=== PATIENT | female | born 1970 | race Caucasian/White ===

== ENCOUNTER → 2024-10-23 | Outpatient (CLI) | payer BC, SELFPAY ==
[2024-10-23 17:38] LABS: Misc Send Out* See Sep Rpt
[2024-10-23 17:53] LABS: Basophils # (Auto) 0.1 Thou/mm3 (0.0-0.2); Basophils % (Auto) 1 % (0-2.5); Eosinophils # (Auto) 0.3 Thou/mm3 (0.0-0.5); Eosinophils % (Auto) 3 % (0-10); Hemoglobin 12.3 g/dL (12.0-16.0); Immature Granulocytes % (Auto) 0 % (0-0); Immature Granulocytes Auto 0.02 Thou/mm3 (0.00-0.00); Lymphocytes # (Auto) 3.4 Thou/mm3 (1.0-4.8); Lymphocytes % (Auto) 40 % (10-50); Mean Corpuscular HGB Conc 32.4 g/dl (31.0-37.0); Mean Corpuscular Hemoglobin 27.5 pg (25.0-35.0); Mean Corpuscular Volume 85 fL (80-100); Monocytes # (Auto) 0.5 Thou/mm3 (0.0-0.8); Monocytes % (Auto) 5 % (0-12); Neutrophils # (Auto) 4.4 Thou/mm3 (1.8-7.7); Neutrophils % (Auto) 51 % (37-80); Nucleated Red Blood Cell % 0 /100 WBC (0); Platelet Count 408 Thou/mm3 (140-440); RDW Standard Deviation 44.1 fL (36.4-46.3); Red Blood Count 4.47 Miln/mm3 (4.00-5.20); White Blood Count 8.6 Thou/mm3 (3.6-11.0)
[2024-10-23 18:14] LABS: Sed Rate (ESR) 41 mm/hr (0-30)
[2024-10-23 18:28] LABS: Vitamin B12 628 pg/mL (211-911)
[2024-10-23 18:29] LABS: Alanine Aminotransferase 27 U/L (10-49); Albumin, Serum 4.7 gm/dL (3.5-5.0); Albumin/Globulin Ratio 2.1 (1.2-2.2); Alkaline Phosphatase 140 U/L (46-116); Anion Gap 8 (7-16); Aspartate Amino Transferase 24 U/L (0-34); BUN/Creatinine Ratio 17 Ratio (12-20); Bilirubin,Total 0.3 mg/dL (0.3-1.2); Blood Urea Nitrogen 12 mg/dL (9-23); C-Reactive Protein 0.5 mg/dL (0.0-0.9); Calcium 9.2 mg/dL (8.3-10.6); Calcium (Corrected) 9.2 mg/dL (8.5-10.1); Carbon Dioxide 31.9 mMol/L (20.0-31.0); Chloride 96 mMol/L (98-107); Creatinine (Component) 0.7 mg/dL (0.6-1.3); Free T3 4.1 pg/mL (2.3-4.2); Free T4 (Free Thyroxine) 1.54 ng/dL (0.89-1.76); Globulin 2.2 gm/dL (2.3-3.5); Glucose 113 mg/dL (74-106); Osmolality,Calculated 272 (275-295); Potassium 3.3 mMol/L (3.4-5.1); Sodium 136 mMol/L (136-145); Thyroid Stimulating Hormone 2.78 uIU/mL (0.55-4.78); Total Protein 6.9 gm/dL (5.7-8.2); eGFR > 60 See Note
[2024-10-31 14:21] LABS: Vitamin B1 (Thiamine)* <6 nmol/L (8-30)
[2024-11-01 07:05] LABS: Cardiolipin Ab (IgA) <2.0 APL-U/mL; Cardiolipin Ab (IgG) <2.0 GPL-U/mL; EBV VCA Ab (IgM) <36.00 U/mL; Sjogren's antibody (SS-A) <1.0 NEG AI (<1.0 NEGATIVE); Sm Antibody <1.0 NEG AI (<1.0 NEGATIVE)
[2024-11-05 06:47] LABS: B2-Glycoprotein I Ab IgA <2.0 U/mL; B2-Glycoprotein I Ab IgG <2.0 U/mL; B2-Glycoprotein I Ab IgM <2.0 U/mL; Cardiolipin Ab (IgM) <2.0 MPL-U/mL; Complement Component C3* 203 mg/dL (83-193); Complement Component C4c* 24 mg/dL (15-57); DNA (ds) Antibody* 1 IU/mL; EBV Ab Interpretation PAST; Scl-70 Antibody* <1.0 NEG AI (<1.0 NEGATIVE); Sjogren's Antibody (SS-B) <1.0 NEG AI (<1.0 NEGATIVE); Sm/RNP Antibody <1.0 NEG AI (<1.0 NEGATIVE); Thyroid Peroxidase Antibodies* 1 IU/mL (<9)
== END | disposition home or self-care (01) ==
LOC: COPL 17:03
PROVIDERS: PCP Family Medicine; Referring Provider Internal Medicine; Visit Provider Internal Medicine Endocrinology, Diabetes & Metabolism
DX: E89.0 Postprocedural hypothyroidism (principal); E03.9 Hypothyroidism, unspecified; F51.04 Psychophysiologic insomnia; I10 Essential (primary) hypertension; K21.9 Gastro-esophageal reflux disease without esophagitis; M79.18 Myalgia, other site; R53.83 Other fatigue; R76.8 Other specified abnormal immunological findings in serum
CPT/HCPCS: 36415; 80053; 82607; 84425; 84439; 84443; 84481; 85025; 85652; 86140; 86146; 86147; 86160; 86225; 86235; 86376; 86664; 86665; 86880

== ENCOUNTER → 2024-11-27 | Outpatient (CLI) | payer BC, SELFPAY ==
[2024-11-27 14:40] LABS: Sed Rate (ESR) 25 mm/hr (0-30)
[2024-11-27 14:45] LABS: Alanine Aminotransferase 17 U/L (10-49); Albumin, Serum 4.5 gm/dL (3.5-5.0); Albumin/Globulin Ratio 1.8 (1.2-2.2); Alkaline Phosphatase 95 U/L (46-116); Anion Gap 11 (7-16); Aspartate Amino Transferase 18 U/L (0-34); BUN/Creatinine Ratio 19 Ratio (12-20); Bilirubin,Total 0.2 mg/dL (0.3-1.2); Blood Urea Nitrogen 15 mg/dL (9-23); C-Reactive Protein 0.7 mg/dL (0.0-0.9); Calcium 9.3 mg/dL (8.3-10.6); Calcium (Corrected) 9.3 mg/dL (8.5-10.1); Carbon Dioxide 26.8 mMol/L (20.0-31.0); Chloride 100 mMol/L (98-107); Creatinine (Component) 0.8 mg/dL (0.6-1.3); Globulin 2.5 gm/dL (2.3-3.5); Glucose 128 mg/dL (74-106); Osmolality,Calculated 278 (275-295); Sodium 138 mMol/L (136-145); eGFR > 60 See Note
[2024-11-27 14:58] LABS: Potassium 2.4 mMol/L (3.4-5.1)
[2024-11-27 21:21] LABS: Parathyroid Hormone Intact 58.1 pg/ml (18.5-88.0)
[2024-12-03 06:59] LABS: Mitochondrial Ab NEGATIVE (NEGATIVE); Thyroid Peroxidase Antibodies* <1 IU/mL (<9)
[2024-12-03 07:00] LABS: Gamma Glutamyl Transpeptidase* 10 U/L (3-70); LKM-1 Antibody (IgG)* <20.0 U
== END | disposition home or self-care (01) ==
PROVIDERS: PCP Family Medicine
DX: E03.9 Hypothyroidism, unspecified (principal); F51.04 Psychophysiologic insomnia; I10 Essential (primary) hypertension; K21.9 Gastro-esophageal reflux disease without esophagitis; M51.372 Other intervertebral disc degeneration, lumbosacral region with discogenic back pain and lower extremity pain; M79.18 Myalgia, other site; R53.83 Other fatigue; R76.8 Other specified abnormal immunological findings in serum
CPT/HCPCS: 36415; 80053; 82977; 83970; 85652; 86140; 86255; 86376

== ENCOUNTER → 2025-01-09 | Outpatient (CLI) | payer BC, SELFPAY ==
[2025-01-09 18:09] LABS: Basophils # (Auto) 0.1 Thou/mm3 (0.0-0.2); Basophils % (Auto) 1 % (0-2.5); Eosinophils # (Auto) 0.4 Thou/mm3 (0.0-0.5); Eosinophils % (Auto) 5 % (0-10); Hematocrit 32.9 % (36.0-46.0); Hemoglobin 10.5 g/dL (12.0-16.0); Immature Granulocytes % (Auto) 0 % (0-0); Immature Granulocytes Auto 0.01 Thou/mm3 (0.00-0.00); Lymphocytes # (Auto) 3.1 Thou/mm3 (1.0-4.8); Lymphocytes % (Auto) 39 % (10-50); Mean Corpuscular HGB Conc 31.9 g/dl (31.0-37.0); Mean Corpuscular Hemoglobin 25.1 pg (25.0-35.0); Mean Corpuscular Volume 79 fL (80-100); Monocytes # (Auto) 0.5 Thou/mm3 (0.0-0.8); Monocytes % (Auto) 6 % (0-12); Neutrophils # (Auto) 3.9 Thou/mm3 (1.8-7.7); Neutrophils % (Auto) 49 % (37-80); Nucleated Red Blood Cell % 0 /100 WBC (0); Platelet Count 420 Thou/mm3 (140-440); RDW Standard Deviation 44.7 fL (36.4-46.3); Red Blood Count 4.18 Miln/mm3 (4.00-5.20); White Blood Count 7.9 Thou/mm3 (3.6-11.0)
[2025-01-09 18:29] LABS: Alanine Aminotransferase 35 U/L (10-49); Albumin, Serum 4.1 gm/dL (3.5-5.0); Albumin/Globulin Ratio 1.7 (1.2-2.2); Alkaline Phosphatase 124 U/L (46-116); Anion Gap 11 (7-16); Aspartate Amino Transferase 33 U/L (0-34); BUN/Creatinine Ratio 14 Ratio (12-20); Bilirubin,Total 0.2 mg/dL (0.3-1.2); Blood Urea Nitrogen 11 mg/dL (9-23); Calcium 9.2 mg/dL (8.3-10.6); Calcium (Corrected) 9.2 mg/dL (8.5-10.1); Carbon Dioxide 29.2 mMol/L (20.0-31.0); Chloride 99 mMol/L (98-107); Creatinine (Component) 0.8 mg/dL (0.6-1.3); Free T3 3.3 pg/mL (2.3-4.2); Free T4 (Free Thyroxine) 1.37 ng/dL (0.89-1.76); Globulin 2.4 gm/dL (2.3-3.5); Glucose 91 mg/dL (74-106); Osmolality,Calculated 276 (275-295); Potassium 3.1 mMol/L (3.4-5.1); Sodium 139 mMol/L (136-145); Thyroid Stimulating Hormone 2.65 uIU/mL (0.55-4.78); Total Protein 6.5 gm/dL (5.7-8.2); eGFR > 60 See Note
== END | disposition home or self-care (01) ==
PROVIDERS: PCP Nurse Practitioner Adult Health; Referring Provider Physician Assistant
DX: K21.9 Gastro-esophageal reflux disease without esophagitis (principal); R53.83 Other fatigue; E66.9 Obesity, unspecified; E89.0 Postprocedural hypothyroidism; I10 Essential (primary) hypertension; M79.18 Myalgia, other site
CPT/HCPCS: 36415; 80053; 84439; 84443; 84481; 85025

== ENCOUNTER → 2025-01-21 | Outpatient (CLI) | payer BC, SELFPAY ==
[2025-01-28 06:56] LABS: Helicobacter pylori Ag, Stool* NOT DETECTED (NOT DETECTED)
== END | disposition home or self-care (01) ==
LOC: SLDO 14:08
PROVIDERS: Referring Provider Physician Assistant; Visit Provider Physician Assistant
DX: K21.9 Gastro-esophageal reflux disease without esophagitis (principal)
CPT/HCPCS: 87338

== ENCOUNTER → 2025-02-13 | Outpatient (CLI) | payer BC, SELFPAY ==
[2025-02-13 16:31] LABS: Basophils # (Auto) 0.1 Thou/mm3 (0.0-0.2); Basophils % (Auto) 1 % (0-2.5); Eosinophils # (Auto) 0.4 Thou/mm3 (0.0-0.5); Eosinophils % (Auto) 5 % (0-10); Hematocrit 33.8 % (36.0-46.0); Hemoglobin 10.8 g/dL (12.0-16.0); Immature Granulocytes % (Auto) 0 % (0-0); Immature Granulocytes Auto 0.01 Thou/mm3 (0.00-0.00); Lymphocytes # (Auto) 2.7 Thou/mm3 (1.0-4.8); Lymphocytes % (Auto) 37 % (10-50); Mean Corpuscular Hemoglobin 24.8 pg (25.0-35.0); Mean Corpuscular Volume 78 fL (80-100); Monocytes # (Auto) 0.5 Thou/mm3 (0.0-0.8); Monocytes % (Auto) 7 % (0-12); Neutrophils # (Auto) 3.6 Thou/mm3 (1.8-7.7); Neutrophils % (Auto) 50 % (37-80); Nucleated Red Blood Cell % 0 /100 WBC (0); Platelet Count 418 Thou/mm3 (140-440); Red Blood Count 4.35 Miln/mm3 (4.00-5.20); White Blood Count 7.3 Thou/mm3 (3.6-11.0)
== END | disposition home or self-care (01) ==
LOC: COPL 15:02
PROVIDERS: PCP Family Medicine; Referring Provider Family Medicine; Visit Provider Family Medicine
DX: D50.0 Iron deficiency anemia secondary to blood loss (chronic) (principal)
CPT/HCPCS: 36415; 85025

== ENCOUNTER → 2025-04-19 | Outpatient (CLI) | payer BC, SELFPAY ==
--- NOTE | 2025-04-19 | XR_ITS ---
Examination: Knee bilateral, 6 views Technique: Knee AP, lateral, oblique each knee total 6 views Date and time of exam: April 19, 2025 1141 hours INDICATIONS: Knee pain beginning 6 months ago. FINDINGS: Moderate osteopenia Bilateral minimal narrowing medial joint spaces No fracture or dislocation Bilateral minimal osteoarthritis patellofemoral joints IMPRESSION: Bilateral minimal osteoarthritis
[2025-04-19 12:43] LABS: Basophils % (Auto) 0 % (0-2.5); Eosinophils % (Auto) 0 % (0-10); Hematocrit 34.6 % (36.0-46.0); Hemoglobin 11.1 g/dL (12.0-16.0); Immature Granulocytes % (Auto) 1 % (0-0); Immature Granulocytes Auto 0.06 Thou/mm3 (0.00-0.00); Lymphocytes # (Auto) 1.6 Thou/mm3 (1.0-4.8); Lymphocytes % (Auto) 13 % (10-50); Mean Corpuscular HGB Conc 32.1 g/dl (31.0-37.0); Mean Corpuscular Hemoglobin 25.3 pg (25.0-35.0); Mean Corpuscular Volume 79 fL (80-100); Monocytes # (Auto) 0.3 Thou/mm3 (0.0-0.8); Monocytes % (Auto) 2 % (0-12); Neutrophils # (Auto) 10.4 Thou/mm3 (1.8-7.7); Neutrophils % (Auto) 84 % (37-80); Nucleated Red Blood Cell % 0 /100 WBC (0); Platelet Count 441 Thou/mm3 (140-440); RDW Standard Deviation 48.1 fL (36.4-46.3); Red Blood Count 4.39 Miln/mm3 (4.00-5.20); White Blood Count 12.4 Thou/mm3 (3.6-11.0)
[2025-04-19 13:00] LABS: Ferritin 2 ng/mL (7.3-270.7); Iron 16 mcg/dL (50-170); Vitamin B12 578 pg/mL (211-911)
[2025-04-19 13:02] LABS: Alanine Aminotransferase 24 U/L (10-49); Albumin, Serum 4.6 gm/dL (3.5-5.0); Albumin/Globulin Ratio 2.2 (1.2-2.2); Alkaline Phosphatase 71 U/L (46-116); Anion Gap 10 (7-16); Aspartate Amino Transferase 19 U/L (0-34); BUN/Creatinine Ratio 19 Ratio (12-20); Bilirubin,Total 0.2 mg/dL (0.3-1.2); Blood Urea Nitrogen 13 mg/dL (9-23); Calcium 9.1 mg/dL (8.3-10.6); Calcium (Corrected) 9.1 mg/dL (8.5-10.1); Carbon Dioxide 24.4 mMol/L (20.0-31.0); Chloride 111 mMol/L (98-107); Creatinine (Component) 0.7 mg/dL (0.6-1.3); Free T4 (Free Thyroxine) 1.39 ng/dL (0.89-1.76); Globulin 2.1 gm/dL (2.3-3.5); Glucose 140 mg/dL (74-106); Osmolality,Calculated 290 (275-295); Phosphorous 3.2 mg/dL (2.4-5.1); Potassium 3.4 mMol/L (3.4-5.1); Sodium 145 mMol/L (136-145); Thyroid Stimulating Hormone 0.36 uIU/mL (0.55-4.78); Total Protein 6.7 gm/dL (5.7-8.2); eGFR > 60 See Note
== END | disposition home or self-care (01) ==
LOC: CDIM 11:22 → COPL 12:07
PROVIDERS: PCP Family Medicine; Referring Provider Internal Medicine Endocrinology, Diabetes & Metabolism; Visit Provider Family Medicine
DX: E03.9 Hypothyroidism, unspecified (principal); M25.561 Pain in right knee; M25.562 Pain in left knee; R53.83 Other fatigue; Z13.1 Encounter for screening for diabetes mellitus
CPT/HCPCS: 36415; 73562; 80053; 82607; 82728; 83540; 84100; 84439; 84443; 85025

== ENCOUNTER → 2025-06-13 | Outpatient (CLI) | payer BC, SELFPAY ==
--- NOTE | 2025-06-13 13:45 | XR_ITS ---
Exam: MRI knee without contrast, right Date and time of exam: June 13, 2025 1517 hours INDICATIONS: Right knee pain 3 months Technique: Multiple axial, coronal, and sagittal sections on the knee have been obtained. T2-Weighted sagittal, fat-suppressed images, TR 3,500, TE 62, T2 weighted coronal fat-saturated images, TR 3,500, TE 62 Proton density sagittal sections, TR 1800, TE 31. T-1 weighted coronal images, TR 524, TE 13.0 Findings: Medial meniscus anterior horn intact. Medial meniscus, body intact. Posterior horn medial meniscus intact. Lateral meniscus anterior horn is intact Lateral meniscus, body truncation inner margin Posterior horn lateral meniscus is intact Anterior cruciate ligament appears intact. Posterior cruciate ligament appears intact. Knee effusion is moderate. Quadriceps and patellar tendons appear intact. There is no evidence of tendinosis. Inflammatory change or fracture of Hoffa's fat pad is not seen. Medial patellar facet demonstrates moderate thinning. Lateral patellar facet cartilage demonstrates moderate thinning. Trochlear cartilage demonstrates moderate thinning. Marrow signal increased about the lateral joint space. Medial collateral ligament appears intact. No meniscocapsular separation is seen. Illiotibial band and fibular collateral ligament are intact. Biceps femoris tendons appear intact. Medial femoral condylar articular cartilage demonstrates moderate thinning. Lateral femoral condylar articular cartilage demonstratesmoderate thinning. Tibial plateau cartilage demonstrates moderate thinning. Impression: Tear of the body anterior horn lateral meniscus Cruciate ligaments are intact
== END | disposition home or self-care (01) ==
PROVIDERS: PCP Family Medicine; Referring Provider Family Medicine; Visit Provider Family Medicine
DX: S83.281A Other tear of lateral meniscus, current injury, right knee, initial encounter (principal); X58.XXXA Exposure to other specified factors, initial encounter
CPT/HCPCS: 73721

== ENCOUNTER 2025-07-12 10:32 | Outpatient (AMB) | payer BC, SELFPAY ==
[2025-07-12 11:07] VITALS: BP 126/80; PULSE 65; RESP 19; TEMP 36.4; O2SAT 94; BMI 30.9
--- NOTE | 2025-07-12 11:07 | ORTHONT_ITS ---
Vital signs 07/12/25 11:07 Height 1.75 m Height Method Measured Weight 94.999 kg Weight Measurement Method Standing Scale BMI 30.9 BP 126/80 Blood Pressure Source Automatic Cuff Blood Pressure Location Left Upper Arm Position Sitting Respiration 19 Pulse 65 Pulse Source Monitor Temp 97.6 F Temp Source Temporal Artery Scan Pulse Oximetry (%) 94 L Oxygen Delivery Method Room Air Med/Allergies Allergies & Medications Allergies adhesive tape Allergy (Mild, Verified 07/12/25 11:08) Rash codeine Allergy (Mild, Verified 07/12/25 11:08) Itching erythromycin base Allergy (Mild, Verified 07/12/25 11:08) Rash hydrocodone Adverse Reaction (Unknown, Verified 07/12/25 11:08) ITCHY Medication Reconciliation oxycodone-acetaminophen 10 mg-325 mg tablet (Percocet) 1 tab PO Q6HR PRN Pain 11/10/18 [History Confirmed 07/12/25] amitriptyline 25 mg tablet 25 mg PO HS 08/16/21 [History Confirmed 07/12/25] baclofen 20 mg tablet 20 mg PO TID PRN Muscle Spasm 08/16/21 [History Confirmed 07/12/25] dexlansoprazole 60 mg capsule,biphase delayed release (Dexilant) 60 mg PO HS 08/16/21 [History Confirmed 07/12/25] estradiol 1 mg tablet 1 mg PO HS 08/16/21 [History Confirmed 07/12/25] lorazepam 1 mg tablet 1 mg PO BID PRN Anxiety 08/16/21 [History Confirmed 07/12/25] progesterone micronized 100 mg capsule 100 mg PO HS 08/16/21 [History Confirmed 07/12/25] ropinirole 0.5 mg tablet 0.5 mg PO QPM 08/16/21 [History Confirmed 07/12/25] magnesium 250 mg tablet 1,000 mg PO HS 10/21/21 [History Confirmed 07/12/25] zolpidem 10 mg tablet 10 mg PO HS 10/21/21 [History Confirmed 07/12/25] levothyroxine 100 mcg tablet (Synthroid) 100 mcg PO QDAY #60 tabs 10/22/21 [Rx Confirmed 07/12/25] mirabegron 50 mg tablet,extended release 24 hr (Myrbetriq) 50 mg PO QDAY 10/28/21 [History Confirmed 07/12/25] meloxicam 7.5 mg tablet 7.5 mg PO QDAY #45 tabs 07/12/25 [Rx] Exam Exam Breathing is nonlabored. Patient has a normal mood and affect. Bilateral extremities were evaluated and demonstrates sensation intact to light touch. Palpable pedal pulses are present. No significant edema is present. Bilateral hips were examined. The patient has no pain with log roll of the hips. Internal rotation to 30 degrees and external rotation to 30 degrees is painless. Negative FADIR. Left knee was examined today. The left knee is in reasonable alignment. Range of motion from 0-120 degrees. Knee is stable to varus and valgus as well as AP translation with <5mm. Patient has a negative McMurrays. There is no pain with patellofemoral compression and no crepitus noted. The knee is nontender to palpation. The right knee was also examined. The right knee is in varus alignment. Range of motion from 0-115 degrees. Knee is stable to varus and valgus as well as AP translation with <5mm. Patient has a positive McMurrays. There is no pain with patellofemoral compression and no crepitus noted. The knee is tender to palpation medially. An MRI confirms a meniscus tear as well as x-rays demonstrate moderate arthritis Assessment and Plan Problem List (1) Arthritis of knee, right: Status: Acute Plan: Patient is a pleasant 54-year-old female with right knee pain and right knee arthritis. We discussed different treatment options. We recommend anti- inflammatories as well as a cortisone injection. We discussed natural history of a degenerative meniscal tear in great detail today Recommend knee cortisone injection as patient would like to proceed with conservative treatment at this time. The risks and benefits of the procedure were reviewed with the patient and patient gave verbal consent to continue with the procedure. Procedure: performed by Dr. Washington Using sterile technique the Right knee was thoroughly prepped with alcohol, and approximately 1 cc of Depo-Medrol 80mg/mL and 4 cc of 0.2% ropivacaine was injected without resistance into the medial tibial femoral joint space. The patient tolerated the procedure. Office Procedures GNS Level of Care Nursing/Assessment Patient Status: Initial/New Patient Nursing Assessment/Reassesment: Medication Reconciliation, Orthostatic Vitals, Update PMH in EMR and Vital Signs Coordination of Care: Complex Care and Chronic Disease 1-5, Education Complex Pt/Fam, Consent,records obtained, informed consent, Lab and Imaging orders, Results/Orders obtained and Staff clarify orders New Patient Charge New Patient Point Assignment: 1119 New Patient Point Charge: ESTATE PLANNING [employer] Level 4 (0885-3123) Surgical Proc/IM SQ injection Major Surgical Procedure: Yes (KNEE INJECTION ) Medication Given Medication Given Medication Given: Yes Documented Dose Given: 1 Route: Infiitration Office Meds methylprednisolone acetate 80 mg/mL suspension for injection Performing Provider: Calderon Washington MD Performing Location: [facility] Administered by: Calderon Washington MD on 07/12/25 11:35 Dose Route Admin Location Dispensed Lot Number Expiration Date [facility] Used [employer] 80 mg intra-articular KNEE 1 mL [id number] 12/21/26 0169-3857-04 [facility] Comments: ropivacaine (PF) 2 mg/mL (0.2 %) injection solution Performing Provider: Calderon Washington MD Performing Location: [facility] Administered by: Calderon Washington MD on 07/12/25 11:35 Dose Route Admin Location Dispensed Lot Number Expiration Date [facility] Used [employer] 20 mL Infiltration KNEE 20 mL [id number] 12/21/27 18623-699-84 [facility] Intake Visit Data Collection New Patient or Established: New Patient (never been to [facility]) Reason for Visit:: RIGHT KNEE MENISCUS Seen by Clinical Staff ONLY (RN/MA): No 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: No PCP or OBGYN visit in last 3 months: Yes Hx Now: No Do You Feel Safe at Home: Yes Authorities Contacted: N/A Questionairres Past Medical History Past Medical History Have you ever been diagnosed with any of the following: Neurological Problems Seizures: No Migraine: Yes Cardiology Problems Congestive Heart Failure: No Respiratory Problems Chronic Obstructive Pulmonary Disease (COPD): No Pneumonia: Yes (2019) Stomache/Intestinal Problems Hepatitis: Yes (Hep A as a child) Gall Bladder Disease: Yes (lap tramaine -4 yrs ago) Gastroesophageal Reflux Disease: Yes Obesity: Yes Genital/Urinary Problems Renal Disease: No Reproductive Problems Previous Pregnancies: Yes () Musculoskeletal Problems Arthritis: Yes Scoliosis: Yes Carpal Tunnel Syndrome: Yes (right hand) Fibromyalgia: Yes Endocrine Problems Diabetes Mellitus Type 1: No Diabetes Mellitus Type 2: No Hypoglycemia: Yes Blood Problems Anemia: No Psychologic Problems Depression: Yes Anxiety: Yes Other Problems Hospitalization: Yes (thyroid surgery) Shingles: No Falls: No Blood Transfusions: No Anesthesia Reactions: No Chemotherapy: No Radiation Therapy: No MRSA: No VRSA: No Chicken Pox: Yes Cancer: Yes Cervical Cancer: Yes Surgical History Thyroidectomy: Yes (right side in 2010, left current procedure) Subjective Visit Visit for: new patient and knee Immunization / Flu Flu Vaccine in the Last 12 Months: No Flu Vaccine Exclusion Criteria: Refused by Patient History of Present Illness Chief complaint: RIGHT KNEE MENISCUS Date of injury / onset of symptoms: 3MONTHS Patient is a pleasant 52-year-old female with a prior arthroscopic meniscectomy and right knee pain. This been ongoing for 6 months. She has tried some conservative treatment. She has not had any anti-inflammatories. The pain is primarily medially and she has a history of fibromyalgia Personal History Occupation: RETIRED Red flag PMH: none BMI Counceling provided: Yes Pain Pain level (0-10): 6 Pain location: anterior Pain quality: sharp and dull Pain timing: increases with activity Associated signs & symptoms: none Ambulatory data Ambulatory device: none Treatments Number of previous injections: 1 Improvement with previous injections: No Number of Physical Therapy sessions: 0 Improvement with PT: No Improvement with NSAIDS: no Review of Systems Review of Systems: All systems negative unless otherwise noted in HPI.
--- NOTE | 2025-07-12 11:35 | XR_ITS ---
Examination: Bilateral AP knees single view Right knee PA lateral axial 3 views TECHNIQUE: Bilateral AP knees standing single view Right knee PA standing flexion, standing lateral, axial right knee 3 views total 4 views Date and time: July 12, 2025 1133 hours INDICATIONS: Right knee pain 4 months. FINDINGS: Moderate narrowing lateral joint space right knee No fracture or dislocation Mild narrowing bilateral medial joint spaces Small right knee effusion No patellar dislocation IMPRESSION: Moderate narrowing lateral joint space right knee Mild narrowing medial joint space right knee Mild narrowing medial joint space left knee
== END 2025-07-12 11:37 | disposition home or self-care (01) ==
PROVIDERS: PCP Family Medicine; Referring Provider Family Medicine; Supervising Provider Orthopaedic Surgery Adult Reconstructive Orthopaedic Surgery; Visit Provider Orthopaedic Surgery Adult Reconstructive Orthopaedic Surgery
DX: M17.11 Unilateral primary osteoarthritis, right knee (principal); M25.561 Pain in right knee; E66.9 Obesity, unspecified; Z71.3 Dietary counseling and surveillance; Z68.30 Body mass index [BMI] 30.0-30.9, adult; K21.9 Gastro-esophageal reflux disease without esophagitis
CPT/HCPCS: 20610; 73564; 99204; J1010; J2795; G0463

== ENCOUNTER → 2025-07-31 | Outpatient (CLI) | payer BC, SELFPAY ==
[2025-07-31 18:04] LABS: Free T3 1.9 pg/mL (2.3-4.2); Free T4 (Free Thyroxine) 0.70 ng/dL (0.89-1.76); Thyroid Stimulating Hormone 82.56 uIU/mL (0.55-4.78)
== END | disposition home or self-care (01) ==
LOC: COPL 16:55
PROVIDERS: PCP Family Medicine; Referring Provider Internal Medicine Endocrinology, Diabetes & Metabolism; Visit Provider Internal Medicine Endocrinology, Diabetes & Metabolism
DX: E89.0 Postprocedural hypothyroidism (principal)
CPT/HCPCS: 36415; 84439; 84443; 84481

== ENCOUNTER → 2025-10-03 | Outpatient (CLI) | payer BC, SELFPAY ==
[2025-10-03 12:47] LABS: Follicle Stimulating Hormone 34.54 mIU/mL (See Note)
[2025-10-03 12:49] LABS: Albumin, Serum 4.7 gm/dL (3.5-5.0); Anion Gap 7 (7-16); BUN/Creatinine Ratio 14 Ratio (12-20); Blood Urea Nitrogen 10 mg/dL (9-23); Calcium 9.3 mg/dL (8.3-10.6); Calcium (Corrected) 9.3 mg/dL (8.5-10.1); Carbon Dioxide 28.2 mMol/L (20.0-31.0); Chloride 106 mMol/L (98-107); Creatinine (Component) 0.7 mg/dL (0.6-1.3); Free T3 4.5 pg/mL (2.3-4.2); Free T4 (Free Thyroxine) 1.59 ng/dL (0.89-1.76); Glucose 120 mg/dL (74-106); Osmolality,Calculated 281 (275-295); Phosphorous 3.2 mg/dL (2.4-5.1); Potassium 3.8 mMol/L (3.4-5.1); Sodium 141 mMol/L (136-145); Thyroid Stimulating Hormone 1.12 uIU/mL (0.55-4.78); Uric Acid 4.5 mg/dL (3.1-7.8); eGFR > 60 See Note
[2025-10-03 13:13] LABS: Sed Rate (ESR) 22 mm/hr (0-30)
[2025-10-03 13:49] LABS: Cocci Serology, IgM Negative (Negative)
[2025-10-04 12:39] LABS: Cocci Serology, IgG Negative (Negative)
[2025-10-09 06:26] LABS: Luteinizing Hormone* 19.0 mIU/mL
== END | disposition home or self-care (01) ==
LOC: COPL 11:27
PROVIDERS: PCP Family Medicine; Referring Provider Family Medicine; Visit Provider Internal Medicine Endocrinology, Diabetes & Metabolism
DX: E03.9 Hypothyroidism, unspecified (principal); B38.1 Chronic pulmonary coccidioidomycosis; N95.1 Menopausal and female climacteric states; Z13.1 Encounter for screening for diabetes mellitus; M10.9 Gout, unspecified
CPT/HCPCS: 36415; 80069; 83001; 83002; 84439; 84443; 84481; 84550; 85652; 86331; 86635

== ENCOUNTER 2025-10-15 10:41 | Outpatient (AMB) | payer BC, SELFPAY ==
--- NOTE | 2025-10-15 11:05 | PD.ORTHCLVIS ---
Vital signs 10/15/25 11:12 Height 1.75 m Height Method Stated Weight 98.6 kg Weight Measurement Method Standing Scale BMI 32.1 BP 127/78 Blood Pressure Source Automatic Cuff Blood Pressure Location Right Upper Arm Position Sitting Respiration 18 Pulse 81 Pulse Source Monitor Temp 97.9 F Temp Source Temporal Artery Scan Pulse Oximetry (%) 95 Oxygen Delivery Method Room Air Med/Allergies Allergies & Medications Allergies adhesive tape Allergy (Mild, Verified 10/15/25 11:17) Rash codeine Allergy (Mild, Verified 10/15/25 11:17) Itching erythromycin base Allergy (Mild, Verified 10/15/25 11:17) Rash hydrocodone Adverse Reaction (Unknown, Verified 10/15/25 11:17) ITCHY Medication Reconciliation oxycodone-acetaminophen 10 mg-325 mg tablet (Percocet) 1 tab PO Q6HR PRN Pain 11/10/18 [History Confirmed 10/15/25] amitriptyline 25 mg tablet 25 mg PO HS 08/16/21 [History Confirmed 10/15/25] baclofen 20 mg tablet 20 mg PO TID PRN Muscle Spasm 08/16/21 [History Confirmed 10/15/25] dexlansoprazole 60 mg capsule,biphase delayed release (Dexilant) 60 mg PO HS 08/16/21 [History Confirmed 10/15/25] estradiol 1 mg tablet 1 mg PO HS 08/16/21 [History Confirmed 10/15/25] lorazepam 1 mg tablet 1 mg PO BID PRN Anxiety 08/16/21 [History Confirmed 10/15/25] progesterone micronized 100 mg capsule 100 mg PO HS 08/16/21 [History Confirmed 10/15/25] ropinirole 0.5 mg tablet 0.5 mg PO QPM 08/16/21 [History Confirmed 10/15/25] magnesium 250 mg tablet 1,000 mg PO HS 10/21/21 [History Confirmed 10/15/25] zolpidem 10 mg tablet 10 mg PO HS 10/21/21 [History Confirmed 10/15/25] levothyroxine 100 mcg tablet (Synthroid) 100 mcg PO QDAY #60 tabs 10/22/21 [Rx Confirmed 10/15/25] mirabegron 50 mg tablet,extended release 24 hr (Myrbetriq) 50 mg PO QDAY 10/28/21 [History Confirmed 10/15/25] meloxicam 7.5 mg tablet 7.5 mg PO QDAY #45 tabs 07/12/25 [Rx Confirmed 10/15/25] Exam Exam Breathing is nonlabored. Patient has a normal mood and affect. Bilateral extremities were evaluated and demonstrates sensation intact to light touch. Palpable pedal pulses are present. No significant edema is present. Bilateral hips were examined. The patient has no pain with log roll of the hips. Internal rotation to 30 degrees and external rotation to 30 degrees is painless. Negative FADIR. Left knee was examined today. The left knee is in reasonable alignment. Range of motion from 0-120 degrees. Knee is stable to varus and valgus as well as AP translation with <5mm. Patient has a negative McMurrays. There is no pain with patellofemoral compression and no crepitus noted. The knee is nontender to palpation. The right knee was also examined. The right knee is in varus alignment. Range of motion from 0-115 degrees. Knee is stable to varus and valgus as well as AP translation with <5mm. Patient has a positive McMurrays. There is no pain with patellofemoral compression and no crepitus noted. The knee is tender to palpation medially. An MRI confirms a meniscus tear as well as x-rays demonstrate moderate arthritis Assessment and Plan Problem List (1) Arthritis of knee, right: Status: Acute Plan: Patient is a pleasant 54-year-old female with right knee pain and right knee arthritis. We discussed different treatment options. We recommend anti-inflammatories as well as a cortisone injection. We discussed natural history of a degenerative meniscal tear in great detail today Recommend knee cortisone injection as patient would like to proceed with conservative treatment at this time. The risks and benefits of the procedure were reviewed with the patient and patient gave verbal consent to continue with the procedure. Procedure: performed by Dr. Washington Using sterile technique the Right knee was thoroughly prepped with alcohol, and approximately 1 cc of Depo-Medrol 80mg/mL and 4 cc of 0.2% ropivacaine was injected without resistance into the medial tibial femoral joint space. The patient tolerated the procedure. Office Procedures GNS Level of Care Nursing/Assessment Patient Status: Established Patient Nursing Assessment/Reassesment: Medication Reconciliation, Update PMH in EMR and Vital Signs Coordination of Care: Complex Care and Chronic Disease 1-5, Education Complex Pt/Fam, Consent,records obtained, informed consent, Results/Orders obtained and Staff clarify orders Established Patient Charge Established Patient Point Assignment: 95 Established Patient Point Charge: EP Level 3 (80-115) Surgical Proc/IM SQ injection Minor Surgical Procedure: Yes (KNEE INJECTION) Medication Given Medication Given Medication Given: Yes Documented Dose Given: 1 Route: Infiitration Medication Given Medication Given Medication Given: Yes Documented Dose Given: 4 Route: Infiitration Office Meds methylprednisolone acetate 80 mg/mL suspension for injection Performing Provider: Calderon Washington MD Performing Location: [facility] Administered by: Calderon Washington MD on 10/15/25 11:35 Dose Route Admin Location Dispensed Lot Number Expiration Date Package [facility] [employer] 80 mg intra-articular KNEE 1 mL [id number] 06/20/27 [address]-3 [id number] [employer] ropivacaine (PF) 2 mg/mL (0.2 %) injection solution Performing Provider: Calderon Washington MD [facility] Administered by: Calderon Washington MD on 10/15/25 11:35 Dose Route Admin Location Dispensed Lot Number Expiration Date Package [facility] [employer] 20 mL Infiltration KNEE 20 mL [id number] 12/21/27 54280-968-51 [id number] [facility] Intake Visit Data Collection New Patient or Established: Established Patient (seen at 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 Required: No PCP or OBGYN visit in last 3 months: Yes Hx Now: No Do You Feel Safe at Home: Yes Authorities Contacted: N/A Questionairres Past Medical History Past Medical History Have you ever been diagnosed with any of the following: Neurological Problems Seizures: No Migraine: Yes Cardiology Problems Congestive Heart Failure: No Respiratory Problems Chronic Obstructive Pulmonary Disease (COPD): No Pneumonia: Yes (2019) Stomache/Intestinal Problems Hepatitis: Yes (Hep A as a child) Gall Bladder Disease: Yes (lap tramaine -4 yrs ago) Gastroesophageal Reflux Disease: Yes Obesity: Yes Genital/Urinary Problems Renal Disease: No Reproductive Problems Previous Pregnancies: Yes () Musculoskeletal Problems Arthritis: Yes Scoliosis: Yes Carpal Tunnel Syndrome: Yes (right hand) Fibromyalgia: Yes Endocrine Problems Diabetes Mellitus Type 1: No Diabetes Mellitus Type 2: No Hypoglycemia: Yes Blood Problems Anemia: No Psychologic Problems Depression: Yes Anxiety: Yes Other Problems Hospitalization: Yes (thyroid surgery) Shingles: No Falls: No Blood Transfusions: No Anesthesia Reactions: No Chemotherapy: No Radiation Therapy: No MRSA: No VRSA: No Chicken Pox: Yes Cancer: Yes Cervical Cancer: Yes Surgical History Thyroidectomy: Yes (right side in 2010, left current procedure) Subjective Visit Visit for: follow up visit and knee Immunization / Flu Flu Vaccine in the Last 12 Months: No Flu Vaccine Exclusion Criteria: Refused by Patient History of Present Illness Chief complaint: RIGHT KNEE MENISCUS Date of injury / onset of symptoms: 3MONTHS Patient is a pleasant 52-year-old female with a prior arthroscopic meniscectomy and right knee pain. This been ongoing for 6 months. She has tried some conservative treatment. She has not had any anti-inflammatories. The pain is primarily medially and she has a history of fibromyalgia. Her last injection lasted for about a month. Personal History Occupation: RETIRED Red flag PMH: none BMI Counceling provided: Yes Pain Pain level (0-10): 6 Pain location: anterior Pain quality: sharp and dull Pain timing: increases with activity Associated signs & symptoms: none Ambulatory data Ambulatory device: none Treatments Number of previous injections: 1 Improvement with previous injections: No Number of Physical Therapy sessions: 0 Improvement with PT: No Improvement with NSAIDS: no Review of Systems Review of Systems: All systems negative unless otherwise noted in HPI.
[2025-10-15 11:12] VITALS: BP 127/78; PULSE 81; RESP 18; TEMP 36.6; O2SAT 95; BMI 32.1
== END 2025-10-15 11:16 | disposition home or self-care (01) ==
PROVIDERS: PCP Family Medicine; Referring Provider Family Medicine; Supervising Provider Orthopaedic Surgery Adult Reconstructive Orthopaedic Surgery; Visit Provider Orthopaedic Surgery Adult Reconstructive Orthopaedic Surgery
DX: M17.11 Unilateral primary osteoarthritis, right knee (principal); M25.561 Pain in right knee; Z98.890 Other specified postprocedural states; E66.9 Obesity, unspecified; Z68.32 Body mass index [BMI] 32.0-32.9, adult
CPT/HCPCS: 20610; 99213; J1010; J2795; G0463